=== PATIENT | female | born 1995 | race Caucasian/White ===

== ENCOUNTER → 2016-10-30 | Outpatient (CLI) | payer OTHER ==
[~2016-10-30] VITALS: Ht 162.6 cm; Wt 122.2 kg
[~2016-10-30] MED LIST: AUGMENTIN875 MG PO; HYDROCODON-ACE1 EAC7 PO; Motrin PO; NO HOME MEDS; PRENATAL TABLE1 EAC3 PO; REGLAN10 MG PO
[2016-10-30 07:12] VITALS: BP 123/76
== END | disposition home or self-care (01) ==
LOC: IVINF 07:02
DX: O36.0930 Maternal care for other rhesus isoimmunization, third trimester, not applicable or unspecified (principal); Z3A.28 28 weeks gestation of pregnancy
CPT/HCPCS: 96372; J2790

== ENCOUNTER 2016-12-27 06:06 | Inpatient (IN) | payer OTHER ==
[~2016-12-27] VITALS: Ht 160 cm; Wt 119.3 kg
[2016-12-27] VITALS (32 sets, daily range): BP systolic 100–203; BP diastolic 54–99
[2016-12-27 09:37] LABS: EOSINOPHIL (%) 0.4 % (0-5); EOSINOPHIL COUNT 0.1 K/uL (0-0.3); HEMATOCRIT 35.7 % (36.0-46.0); IMMATURE GRANULOCYTE (%) 0.5 % (0.0-0.7); IMMATURE GRANULOCYTE COUNT 0.6 K/uL; LYMPHOCYTE COUNT 2.3 K/uL (1.0-2.8); MCH 27.9 PG (29.0-34.0); MCHC 34.2 G/DL (30.0-36.0); MCV 81.7 FL (83-99); MEAN PLAT.VOLUME 10.8 uM^3 (9.5-12.4); MONOCYTE (%) 5.8 % (3-12); MONOCYTE COUNT 0.7 K/uL (0-0.8); NEUTROPHIL (%) 73.8 % (45-76); NEUTROPHIL COUNT 8.7 K/uL (1.8-6.4); PLATELET COUNT 262 K/uL (156-360); RBC DIS.WIDTH-CV 14.4 % (11.8-14.6); RBC DIS.WIDTH-SD 41.8 % (39-53); RED BLOOD COUNT 4.37 M/uL (3.80-5.20); WHITE BLOOD COUNT 11.8 K/uL (4.1-10.2)
[2016-12-27 13:05] LABS: AMPHETAMINES QUANT VALUE 0 NG/ML; BARBITUATES QUANT VALUE 0 NG/ML; BENZODIAZEPINES QUANT VALUE 0 NG/ML; BENZODIAZEPINES, URINE SCREEN Negative (200 ng/mL); MARIJUANA QUANT VALUE 0 NG/ML; OPIATES QUANTITATIVE VALUE 0 NG/ML; PHENCYCLIDINE QUANT VALUE 0 NG/ML
[2016-12-28] VITALS (7 sets, daily range): BP systolic 95–134; BP diastolic 55–71
[2016-12-28 07:31] LABS: EOSINOPHIL (%) 0 % (0-5); HEMATOCRIT 32.6 % (36.0-46.0); IMMATURE GRANULOCYTE (%) 0.7 % (0.0-0.7); IMMATURE GRANULOCYTE COUNT 0.1 K/uL; INSTRUMENT ABS NEUTROPHIL CT 12.2 K/uL; LYMPHOCYTE COUNT 2.2 K/uL (1.0-2.8); MCH 27.2 PG (29.0-34.0); MCHC 32.5 G/DL (30.0-36.0); MCV 83.6 FL (83-99); MEAN PLAT.VOLUME 10.9 uM^3 (9.5-12.4); MONOCYTE COUNT 1.3 K/uL (0-0.8); NEUTROPHIL COUNT 12.2 K/uL (1.8-6.4); PLATELET COUNT 292 K/uL (156-360); RBC DIS.WIDTH-CV 14.3 % (11.8-14.6); RBC DIS.WIDTH-SD 43.4 % (39-53)
[2016-12-28 08:00] LABS: WHITE BLOOD COUNT 15.9 K/uL (4.1-10.2)
[2016-12-29 07:59] VITALS: BP 111/69
[2016-12-29] MEDS ORDERED: IBUPROFEN800 MG PO (08:28)
== END 2016-12-29 19:06 | disposition home or self-care (01) | DRG 775 ==
LOC: LDRP-OP → 2WEST 06:07
PROVIDERS: Advanced Practice Midwife
DX: O70.0 First degree perineal laceration during delivery (principal); O60.14X0 Preterm labor third trimester with preterm delivery third trimester, not applicable or unspecified; O42.013 Preterm premature rupture of membranes, onset of labor within 24 hours of rupture, third trimester; O99.214 Obesity complicating childbirth; E66.01 Morbid (severe) obesity due to excess calories; Z68.42 Body mass index [BMI] 45.0-49.9, adult; Z3A.36 36 weeks gestation of pregnancy; Z37.0 Single live birth
CPT/HCPCS: 80306 90; 85025; 87081; 88307; C1755; J0595; J1050; J2540; J3010; J7120